=== PATIENT | male | born 1970 | race African-American/Black ===

== ENCOUNTER 2018-03-17 15:46 | Inpatient (IN) | payer SELFPAY ==
[~2018-03-17] VITALS: Ht 165.1 cm; Wt 50.3 kg
[2018-03-17 15:55] VITALS: BP_SYST 120
[2018-03-17] MEDS ORDERED: NACL 0.9% 1,000 ML IV ONE ×2 (16:30)
[2018-03-17] MEDS ORDERED: INSULIN REGULAR, HUMAN 10 UNITS/0.1 ML INJ IVP ONE (16:30)
[2018-03-17 16:53] LABS: HEMATOCRIT 39.2 % (36-54); HEMOGLOBIN 12.5 g/dL (14.0-18.0); MEAN CORPUSCULAR HEMOGLOBIN 31 pg (27-31); MEAN CORPUSCULAR HGB CONC 32 % (32-36); MEAN CORPUSCULAR VOLUME 97 fL (79.0-98.0); PLATELET COUNT (AUTO) 285 K/uL (130-430); RED BLOOD CELL COUNT(AUTO) 4.03 MIL/uL (4.2-6.2); RED CELL DISTRIBUTION WIDTH 13.5 % (9.0-15.0); WHITE BLOOD COUNT (AUTO) 2.7 K/uL (4.8-10.8)
[2018-03-17 17:05] LABS: PROTHROMBIN TIME 9.9 SECS (9.5-12.5)
[2018-03-17 17:30] LABS: TOTAL BILIRUBIN 0.3 mg/dL (0.0-1.0)
[2018-03-17 17:44] LABS: CALCIUM 9.6 mg/dL (8.4-11.0); CREATININE 0.98 mg/dL (0.55-1.30)
[2018-03-17 17:49] LABS: BILIRUBIN,URINE NEGATIVE (NEGATIVE); CLARITY/URINE CLEAR (CLEAR); COLOR,URINE YELLOW (YELLOW); GLUCOSE,URINE 3+ (NEGATIVE); KETONES,URINE NEGATIVE (NEGATIVE); LEUKOCYTE ESTERASE ,URINE NEGATIVE (NEGATIVE); NITRITE, URINE NEGATIVE (NEGATIVE); PROTEIN URINE 2+ (NEGATIVE); UROBILINOGEN,URINE 0.2 (0.2-1.0)
[2018-03-17 17:52] LABS: BLOOD, URINE TRACE (NEGATIVE)
[2018-03-17 18:06] LABS: POTASSIUM 2.4 mmol/L (3.5-5.1)
[2018-03-17 18:15] LABS: BARBITURATE, URINE NEGATIVE (NEG <=200); BENZODIAZEPINE, URINE POSITIVE (NEG <=150); URINE AMPHETAMINE NEGATIVE (NEG <=500)
[2018-03-17] MEDS ORDERED: KCL 20 mEq in 100 mL (PREMIX) 100 ML IV ONE (18:15)
[2018-03-17 18:16] LABS: CANNABINOID, URINE NEGATIVE (NEG <=50); COCAINE, URINE NEGATIVE (NEG <=150); METHAMPHETAMINES SCREEN,URINE NEGATIVE (NEG <=500); OPIATE, URINE NEGATIVE (NEG <=100); PHENCYCLIDINE SCREEN,URINE NEGATIVE (NEG <=25); UR TRICYCLIC ANTIDEPRESSANTS NEGATIVE (NEG <=300); URINE METHADONE NEGATIVE (NEG <=200); URINE OXYCODONE SCREEN NEGATIVE (NEG <=100); URINE PROPOXYPHENE SCREEN NEGATIVE (NEG <=300)
[2018-03-17 18:39] LABS: BAND % (MANUAL) 0 % (0-6); BASOPHILS % (MANUAL) 0 % (0-2); EOSINOPHILS % (MANUAL) 0 % (0-7); LYMPHOCYTES % (MANUAL) 55 % (20-46); MONOCYTES % (MANUAL) 16 % (0-11)
[2018-03-17 18:42] LABS: BACTERIA,URINE RARE /HPF (None Seen); MUCUS,URINE None Seen /LPF (None Seen); RBC,URINE 0-3 /HPF (0-3); WBC,URINE 0-3 /HPF (0-3); YEAST,URINE None Seen /HPF (None Seen)
[2018-03-17] MEDS ORDERED: COMMUNICATION ORDER XX ONE (19:00)
[2018-03-17] MEDS ORDERED: KCL 20 mEq in NS 1000 mL 1,000 ML IV SCH (19:00)
[2018-03-17] MEDS ORDERED: INSULIN REGULAR, HUMAN 100 UNITS/ML, 10 ML VIAL (novoLIN R) SUBCUT PRN (19:15)
[2018-03-17] MEDS ORDERED: LIBRAX PO PRN (19:15)
[2018-03-17] MEDS ORDERED: THIAMINE HCL 100 MG TABLET PO ONE (19:15)
[2018-03-17] MEDS ORDERED: POTASSIUM CHLORIDE 20 MEQ TAB.PRT.SR PO ONE (19:15)
[2018-03-17 19:19] VITALS: BP_SYST 160
[2018-03-17] MEDS ORDERED: ASPIRIN 325 MG TABLET PO ONE (19:30)
[2018-03-17] MEDS ORDERED: ENOXAPARIN SODIUM 40 MG/0.4 ML SYRINGE SUBCUT ONE (19:30)
[2018-03-17] MEDS ORDERED: PANTOPRAZOLE SODIUM 40 MG TAB PO ONE (19:30)
[2018-03-17] MEDS ORDERED: traMADol HCL HCL 50 MG TABLET (ULTRAM) PO PRN (19:30)
[2018-03-17] MEDS ORDERED: METOPROLOL TARTRATE 25 MG TABLET PO SCH (21:00)
[2018-03-17] MEDS: POTASSIUM CHLORIDE 40 MEQ in NACL 0.9% 1,000 ML IV SCH (22:00)
[2018-03-18 01:58] VITALS: BP_SYST 156
[2018-03-18] MEDS: POTASSIUM CHLORIDE 40 MEQ in NACL 0.9% 1,000 ML IV SCH (04:31)
[2018-03-18 06:47] LABS: CALCIUM 8.6 mg/dL (8.4-11.0); CREATININE 0.72 mg/dL (0.55-1.30); POTASSIUM 3.3 mmol/L (3.5-5.1)
[2018-03-18 06:51] LABS: BASOPHILS % (AUTO) 0.8 % (0.0-2.0); EOSINOPHILS # (AUTO) 0.1 K/uL (0.0-0.4); EOSINOPHILS % (AUTO) 1.8 % (0.0-4.0); HEMATOCRIT 37.5 % (36-54); HEMOGLOBIN 12.4 g/dL (14.0-18.0); LYMPHOCYTES # (AUTO) 1.3 K/uL (1.0-5.5); LYMPHOCYTES % (AUTO) 30.8 % (20.5-51.5); MEAN CORPUSCULAR HEMOGLOBIN 33 pg (27-31); MEAN CORPUSCULAR HGB CONC 33 % (32-36); MEAN CORPUSCULAR VOLUME 99 fL (79.0-98.0); MONOCYTES # (AUTO) 0.4 K/uL (0.0-1.0); MONOCYTES % (AUTO) 10.6 % (1.7-9.3); NEUTROPHILS # (AUTO) 2.4 K/uL (1.8-7.7); PLATELET COUNT (AUTO) 257 K/uL (130-430); RED BLOOD CELL COUNT(AUTO) 3.77 MIL/uL (4.2-6.2); RED CELL DISTRIBUTION WIDTH 13.9 % (9.0-15.0); WHITE BLOOD COUNT (AUTO) 4.2 K/uL (4.8-10.8)
[2018-03-18 06:56] LABS: PHOSPHORUS 2.7 mg/dL (2.7-4.5)
[2018-03-18] MEDS ORDERED: THIAMINE HCL 100 MG TABLET PO SCH (09:00)
[2018-03-18] MEDS ORDERED: PANTOPRAZOLE SODIUM 40 MG TAB PO SCH (09:00)
[2018-03-18] MEDS ORDERED: ENOXAPARIN SODIUM 40 MG/0.4 ML SYRINGE SUBCUT SCH (09:00)
[2018-03-18] MEDS ORDERED: ASPIRIN 325 MG TABLET PO SCH (09:00)
[2018-03-18 10:03] VITALS: BP_SYST 168
== END 2018-03-18 08:30 | disposition left against medical advice (07) | DRG 638 ==
LOC: SED 15:46 → STU 18:52
PROVIDERS: ADMIT Family Medicine; ATTEND Family Medicine
DX: E11.65 Type 2 diabetes mellitus with hyperglycemia (principal); E87.1 Hypo-osmolality and hyponatremia; F10.229 Alcohol dependence with intoxication, unspecified; F17.200 Nicotine dependence, unspecified, uncomplicated; I25.10 Atherosclerotic heart disease of native coronary artery without angina pectoris; Z53.21 Procedure and treatment not carried out due to patient leaving prior to being seen by health care provider; I10 Essential (primary) hypertension; E78.00 Pure hypercholesterolemia, unspecified; E87.6 Hypokalemia; F19.10 Other psychoactive substance abuse, uncomplicated; Z79.4 Long term (current) use of insulin; Z95.1 Presence of aortocoronary bypass graft; Z90.49 Acquired absence of other specified parts of digestive tract
CPT/HCPCS: 36415; 71045; 80048; 80053; 80307; 81000-TC; 82962; 83735-TC; 84100-TC; 85007; 85025; 85027; 85610-TC; 93005; 96365; 96366; 96375; 99285; G0482; J1650; J1815; J3480; J7030